=== PATIENT | male | born 1960 | race Caucasian/White ===

== ENCOUNTER 2017-12-01 11:33 | Emergency (ER) | payer OTHER ==
[2017-12-01] MEDS: DIPHTH/TET/ACEL PERTUSS (ADULT) 0.5 ML VIAL IM* ×2 (13:23→13:32)
[2017-12-01] MEDS: IBUPROFEN 800 MG TAB PO (13:30)
== END 2017-12-01 14:33 | disposition home or self-care (01) ==
LOC: FTE 11:33
DX: S71.112A Laceration without foreign body, left thigh, initial encounter (principal); X78.1XXA Intentional self-harm by knife, initial encounter; Z23 Encounter for immunization
CPT/HCPCS: 12001; 90471; 90715; 99283-25